=== PATIENT | male | born 1960 | race African-American/Black ===

== ENCOUNTER 2016-04-09 08:31 | Emergency (ER) | payer OTHER ==
[~2016-04-09] VITALS: Ht 185.4 cm; Wt 107.0 kg
[2016-04-09 08:57] LABS: BASO % 1 % (0-3); EOS % 1 % (0-3); HEMATOCRIT 41.4 % (39.0-53.0); HEMOGLOBIN 13.6 g/dL (13.0-17.5); LYMPH # 1.6 x10^3/uL (1.0-4.8); LYMPH % 40 % (24-48); MEAN CORPUSCULAR HEMOGLOBIN 29 pg (25-35); MEAN CORPUSCULAR HGB CONC 33 g/dL (31-37); MEAN CORPUSCULAR VOLUME 89 fL (79-100); MONO % 9 % (0-9); NEUT % 49 % (31-73); PLATELET COUNT 337 x10^3/uL (140-400); RED BLOOD COUNT 4.67 x10^6/uL (4.30-5.70); RED CELL DISTRIBUTION WIDTH 15.9 % (11.5-14.5)
[2016-04-09] MEDS ORDERED: ONDANSETRON PF 4 MG/2 ML VIAL. IV ONE (09:00)
[2016-04-09] MEDS ORDERED: MORPHINE SULFATE 4 MG/ML DISP.SYRIN. IV/SQ PRN (09:00)
[2016-04-09 09:07] LABS: CALCIUM 8.6 mg/dL (8.5-10.1); CREATININE 0.9 mg/dL (0.7-1.3); GFR 105.2; POTASSIUM 3.6 mmol/L (3.5-5.1)
--- NOTE | 2016-04-09 09:07 | PHYS DOC ---
Past Medical History Past Medical History: High Cholesterol, Hypertension Past Surgical History: Knee Replacement, Other Additional Past Surgical Histo: R KNEE REPLACEMENT, HERNIA REPAIR Smoking: Less than 1pk/day Alcohol Use: Heavy Drug Use: Marijuana Adult General Chief Complaint Chief Complaint: LOWER EXTREMITY SWELLING HPI HPI Patient is a 55 year old male who presents with left lower leg swelling that started 2 days ago. He states that he has pain in the leg and it feels warmer than the right leg. He denies fever, chest pain, shortness of breath, weakness, or numbness. He has not had any recent travel, immobilization, surgery, or hormone treatment. He denies personal or family history of blood clots or clotting disorders. He sees a PCP at [facility]. Review of Systems Review of Systems Constitutional: Denies fever or chills. [] Eyes: Denies change in visual acuity, redness, or eye pain. [] HENT: Denies ear pain, nasal congestion or sore throat. [] Respiratory: Denies cough or shortness of breath. [] Cardiovascular: Denies chest pain, palpitations or edema. [] GI: Denies abdominal pain, nausea, vomiting, bloody stools or diarrhea. [] : Denies dysuria, hematuria or urinary frequency. [] Musculoskeletal: Denies back pain or joint pain. Reports left lower leg pain and swelling. Integument: Denies rash or skin lesions. [] Neurologic: Denies headache, focal weakness or sensory changes. [] Endocrine: Denies polyuria or polydipsia. [] Psych: Denies anxiety or depression. [] All systems reviewed and negative unless otherwise stated in the HPI. Current Medications Current Medications Current Medications Medications (Trade) Dose Ordered Sig/Ariel Start Time Stop Time Status Last Admin Dose Admin Morphine Sulfate 4 mg PRN Q15MIN PRN 04/09/16 09:00 04/10/16 08:59 04/09/16 09:04 4 MG Ondansetron HCl (Zofran) 4 mg 1X ONCE 04/09/16 09:00 04/09/16 09:01 DC 04/09/16 09:05 4 MG Allergies Allergies Allergies Coded Allergies Type Severity Reaction Last Updated Verified No Known Drug Allergies 05/24/15 No Physical Exam Physical Exam Constitutional: Well developed, well nourished, no acute distress, non-toxic appearance. [] HENT: Normocephalic, atraumatic, oropharynx moist. [] Eyes: PERRLA, EOMI, conjunctiva normal, no discharge. [] Neck: Normal range of motion, no tenderness, supple, no stridor. [] Cardiovascular: Heart rate regular rhythm, no murmur. [] Lungs & Thorax: Bilateral breath sounds clear to auscultation without wheezes, rales, or rhonchi. [] Skin: Warm, dry, no erythema, no rash. There is no significant difference in warmth between the left and right extremities. Extremities: Left calf tenderness, ROM intact, 2+ pitting edema from the left knee to the foot. Distal pulses equal bilaterally. Less than 2 second capillary refill in the toes. Light touch sensation intact distally. Positive Gurjit's sign. Neurologic: Alert and oriented X 3, normal motor function, normal sensory function, no focal deficits noted. [] Psychologic: Affect normal, judgement normal, mood normal. [] Current Patient Data Vital Signs Vital Signs Date Time Temp Pulse Resp B/P Pulse Ox O2 Delivery O2 Flow Rate FiO2 04/09/16 09:04 22 04/09/16 08:32 99.6 75 166/106 97 Room Air 99.6 Lab Values Laboratory Tests Test 04/09/16 08:50 White Blood Count 4.0x10^3/uL (4.0-11.0) Red Blood Count 4.67x10^6/uL (4.30-5.70) Hemoglobin 13.6g/dL (13.0-17.5) Hematocrit 41.4% (39.0-53.0) Mean Corpuscular Volume 89fL (79-100) Mean Corpuscular Hemoglobin 29pg (25-35) Mean Corpuscular Hemoglobin Concent 33g/dL (31-37) Red Cell Distribution Width 15.9% (11.5-14.5) H Platelet Count 337x10^3/uL (140-400) Neutrophils (%) (Auto) 49% (31-73) Lymphocytes (%) (Auto) 40% (24-48) Monocytes (%) (Auto) 9% (0-9) Eosinophils (%) (Auto) 1% (0-3) Basophils (%) (Auto) 1% (0-3) Neutrophils # (Auto) 2.0x10^3uL (1.8-7.7) Lymphocytes # (Auto) 1.6x10^3/uL (1.0-4.8) Monocytes # (Auto) 0.4x10^3/uL (0.0-1.1) Eosinophils # (Auto) 0.1x10^3/uL (0.0-0.7) Basophils # (Auto) 0.0x10^3/uL (0.0-0.2) Prothrombin Time 12.1SEC (11.7-14.0) Prothrombin Time INR 1.0 (0.8-1.1) Sodium Level 144mmol/L (136-145) Potassium Level 3.6mmol/L (3.5-5.1) Chloride Level 108mmol/L (98-107) H Carbon Dioxide Level 26mmol/L (21-32) Anion Gap 10 (6-14) Blood Urea Nitrogen 12mg/dL (8-26) Creatinine 0.9mg/dL (0.7-1.3) Estimated GFR (Cockcroft-Gault) 105.2 BUN/Creatinine Ratio 13 (6-20) Glucose Level 101mg/dL (70-99) H Calcium Level 8.6mg/dL (8.5-10.1) Total Bilirubin 0.4mg/dL (0.2-1.0) Aspartate Amino Transferase (AST) 20U/L (15-37) Alanine Aminotransferase (ALT) 31U/L (16-63) Alkaline Phosphatase 58U/L (46-116) Total Protein 7.1g/dL (6.4-8.2) Albumin 3.5g/dL (3.4-5.0) Albumin/Globulin Ratio 1.0 (1.0-1.7) Laboratory Tests 04/09/16 08:50 Laboratory Tests 04/09/16 08:50 EKG EKG [] Radiology/Procedures Radiology/Procedures REASON: LLE swelling, pain Pt not available @ [phone] klp PROCEDURE: VENOUS LOWER EXTREMITY LEFT Left lower extremity venous ultrasound, 04/09/2016 : History: Left leg pain and edema Duplex evaluation including grayscale, color flow and spectral Doppler analysis was performed. The femoral and popliteal veins show no filling defects to suggest DVT. The visualized calf veins are unremarkable. There is mild subcutaneous edema in the lower leg. There is an elongated hypoechoic mass in the medial aspect of the popliteal fossa extending inferiorly. It measures approximately 6.0 x 1.6 x 3 cm. No internal color flow is seen. The appearance suggests a complicated fluid collection such as a hematoma or complicated Castro's cyst. IMPRESSION: 1. There is no sonographic evidence of deep vein thrombosis in the left lower extremity. 2. Hypoechoic mass in the left popliteal fossa extending into the upper calf as described above. Course & Med Decision Making Course & Med Decision Making Pertinent Labs and Imaging studies reviewed. (See chart for details) Patient is 55-year-old male who presents with left lower extremity pain and swelling for 2 days. On exam, there is 2+ pitting edema of the left lower extremity. He is neurovascularly intact without compartment syndrome. Ultrasound does not show DVT. There is a complex fluid collection in the popliteal fossa consistent with hematoma or Castro's cyst. There is no history of trauma. There are no significant laboratory antibodies. The patient is discharged with prescription for [place] for pain. He is given contact information for orthopedics for follow-up. Return precautions were discussed. He verbalizes understanding and agrees with plan. Dragon Disclaimer Dragon Disclaimer This electronic medical record was generated, in whole or in part, using a voice recognition dictation system. Departure Departure Impression: Primary Impression: Lower extremity edema Additional Impression: Castro's cyst of knee Disposition: 01 HOME, SELF-CARE Condition: STABLE Referrals: KHOA RABAGO MD Patient Instructions: Castro's Cyst, Edema, [id number] Additional Instructions: Your ultrasound today did not show any blood clots. You likely have a cyst, or fluid-filled sac, behind the left knee. Please take the prescribed pain medication as instructed. Do not drive or operate heavy machinery while taking pain medication. Please follow-up with the orthopedic doctor listed below if you continue to have bothersome symptoms. Return to the emergency department if you have any new or concerning symptoms. Scripts Hydrocodone/Apap 5-325 ([place] 5-325 Tablet)1 Each Tablet1 Tab PO PRN Q6HRS PRN PAIN #20 TAB Prov:JOSY PAINTER 04/09/16 Problem Qualifiers Primary Impression: Lower extremity edema Laterality: left Qualified Code: R60.0 - Localized edema Additional Impression: Castro's cyst of knee Laterality: left Qualified Code: M71.22 - Synovial cyst of popliteal space [ Castro], left knee JOSY PAINTER Apr 09, 2016 09:07
[2016-04-09 09:12] LABS: ALBUMIN 3.5 g/dL (3.4-5.0); TOTAL BILIRUBIN 0.4 mg/dL (0.2-1.0); TOTAL PROTEIN 7.1 g/dL (6.4-8.2)
[2016-04-09 10:02] LABS: PROTHROMBIN TIME PATIENT 12.1 SEC (11.7-14.0)
--- NOTE | 2016-04-09 10:17 | RAD ---
Left lower extremity venous ultrasound, 04/09/2016 : History: Left leg pain and edema Duplex evaluation including grayscale, color flow and spectral Doppler analysis was performed. The femoral and popliteal veins show no filling defects to suggest DVT. The visualized calf veins are unremarkable. There is mild subcutaneous edema in the lower leg. There is an elongated hypoechoic mass in the medial aspect of the popliteal fossa extending inferiorly. It measures approximately 6.0 x 1.6 x 3 cm. No internal color flow is seen. The appearance suggests a complicated fluid collection such as a hematoma or complicated Castro's cyst. IMPRESSION: 1. There is no sonographic evidence of deep vein thrombosis in the left lower extremity. 2. Hypoechoic mass in the left popliteal fossa extending into the upper calf as described above.
[2016-04-09 10:30] VITALS: BP 163/95
[2016-04-09] MEDS ORDERED: HYDR-971 PO (10:31)
== END 2016-04-09 11:03 | disposition home or self-care (01) ==
LOC: ER 08:31
DX: M71.22 Synovial cyst of popliteal space [Baker], left knee (principal); I10 Essential (primary) hypertension; E78.00 Pure hypercholesterolemia, unspecified; Z96.651 Presence of right artificial knee joint; F17.200 Nicotine dependence, unspecified, uncomplicated; F12.10 Cannabis abuse, uncomplicated; F10.10 Alcohol abuse, uncomplicated; Z98.890 Other specified postprocedural states
CPT/HCPCS: 36415; 80053; 85027; 85610; 93971; 96374; 96375; 99285; J2270; J2405

== ENCOUNTER 2016-12-20 13:44 | Emergency (ER) | payer OTHER ==
[~2016-12-20] VITALS: Ht 185.4 cm; Wt 108.9 kg
[2016-12-20 13:44] VITALS: BP 164/107
[~2016-12-20 13:44] MED LIST: HYDR-971 PO
--- NOTE | 2016-12-20 14:27 | PHYS DOC ---
Past Medical History Past Medical History: High Cholesterol, Hypertension Past Surgical History: Knee Replacement, Other Additional Past Surgical Histo: R KNEE REPLACEMENT, HERNIA REPAIR Alcohol Use: Heavy Drug Use: Marijuana Adult General Chief Complaint Chief Complaint: ANKLE PROBLEM HPI HPI Patient is a 56 year old male presents to the emergency department stating that he twisted his left foot as he was trying to avoid stepping on a nail. He also states he twisted the ankle. He denies any knee pain or discomfort. He states last night he noticed that there was swelling in the foot and ankle area. He states he did take Tylenol for the pain and discomfort. Patient denies any numbness or tingling down to the lower extremity. Patient does have a history of high blood pressure his blood pressure is elevated here in the emergency department. He states he has not taken his medication yet. Review of Systems Review of Systems Constitutional: Denies fever or chills [] Eyes: Denies change in visual acuity, redness, or eye pain [] HENT: Denies nasal congestion or sore throat [] Respiratory: Denies cough or shortness of breath [] Cardiovascular: No additional information not addressed in HPI [] GI: Denies abdominal pain, nausea, vomiting, bloody stools or diarrhea [] : Denies dysuria or hematuria [] Musculoskeletal: Denies back pain. Left ankle pain, left foot pain Integument: Denies rash or skin lesions [] Neurologic: Denies headache, focal weakness or sensory changes [] Endocrine: Denies polyuria or polydipsia [] All other systems were reviewed and found to be within normal limits, except as documented in this note. Allergies Allergies Allergies Coded Allergies Type Severity Reaction Last Updated Verified No Known Drug Allergies 05/24/15 No Physical Exam Physical Exam Constitutional: Well developed, well nourished, no acute distress, non-toxic appearance. [] HENT: Normocephalic, atraumatic, bilateral external ears normal, oropharynx moist, no oral exudates, nose normal. [] Eyes: PERRLA, EOMI, conjunctiva normal, no discharge. [] Neck: Normal range of motion, no tenderness, supple, no stridor. [] Cardiovascular:Heart rate regular rhythm, no murmur [] Lungs & Thorax: Bilateral breath sounds clear to auscultation [] Skin: Warm, dry, no erythema, no rash. [] Back: No tenderness, no CVA tenderness. [] Extremities: No left knee tenderness, patient with left ankle and foot tenderness, no bruising or discoloration noted. Patient with swelling noted to the foot and ankle area. No cyanosis, no clubbing, ROM intact, no edema. [] Neurologic: Alert and oriented X 3, normal motor function, normal sensory function, no focal deficits noted. [] Psychologic: Affect normal, judgement normal, mood normal. [] Current Patient Data Vital Signs Vital Signs Date Time Temp Pulse Resp B/P (MAP) Pulse Ox O2 Delivery O2 Flow Rate FiO2 12/20/16 13:44 97.9 86 16 97 Room Air 97.9 EKG EKG [] Radiology/Procedures Radiology/Procedures [][place] [address] IMAGING REPORT Signed PATIENT: ELHAM CATHERINE ACCOUNT: [id number] : 1960 LOCATION: ER AGE: 56 SEX: M EXAM STATUS: REG ER ORD. PHYSICIAN: ZOILA NINA APRN REASON: twisted foot and ankle pain and swelling PROCEDURE: FOOT LEFT 3V 3 view left foot study History: Pain and swelling. Twisting injury yesterday Findings: No acute fracture or dislocation or osteolytic process is seen. Small plantar spur of the calcaneus is seen. IMPRESSION: No acute fracture. DICTATED and SIGNED BY: AMBER CRAWFORD MD DATE: 12/20/16 1435 CC: ZOILA NINA APRN; NO PCP; NON,STAFF ~ [address] [address] IMAGING REPORT Signed PATIENT: ELHAM CATHERINE ACCOUNT: [id number] : 1960 LOCATION: ER AGE: 56 SEX: M EXAM STATUS: REG ER ORD. PHYSICIAN: ZOILA NINA APRN REASON: pain and swelling from twisting ankle yestrerday PROCEDURE: ANKLE LEFT 3V Three-view study of the left ankle History: Pain and swelling. Twisting injury yesterday. Findings: No acute fracture or dislocation or osteolytic process is seen. The mortise ankle joint is intact. A small plantar spur of the calcaneus is seen. IMPRESSION: No acute fracture. DICTATED and SIGNED BY: AMBER CRAWFORD MD DATE: 12/20/16 1434 CC: ZOILA NINA APRN; NO PCP; NON,STAFF ~ Course & Med Decision Making Course & Med Decision Making Pertinent Labs and Imaging studies reviewed. (See chart for details) X-rays were negative for any bony abnormalities per radiology. Patient will be placed in an Raudel wrap will be discharged home with recommendations for Tylenol or ibuprofen for pain and discomfort ice packs on 20 minutes off 20 minutes several times a day elevation as much as possible. Recommendations to followup with orthopedic in 1 week. Signs and symptoms to return to the emergency department as needed for signs and symptoms that become worse. Patient agrees with discharge instructions, treatment regimen and followup recommendations. [] Dragon Disclaimer Dragon Disclaimer This electronic medical record was generated, in whole or in part, using a voice recognition dictation system. Departure Departure Impression: Primary Impression: Left ankle sprain Additional Impression: Sprain of left foot Disposition: HOME, SELF-CARE Condition: STABLE Referrals: NO PCP (PCP) MARY ENCARNACION II, MD Patient Instructions: Ankle Sprain, [id number], Foot Sprain-Brief Additional Instructions: X-rays were negative for bony abnormalities Ice packs on 20 minutes and off 20 minutes several times a day Elevation as much as possible Wear the raudel wrap for the next 5-7 days Tylenol or ibuprofen for pain and discomfort Make sure you take you Blood pressure medications when you get home Followup with orthopedic in 1 week Return to emergency department as needed for signs and symptoms that become worse. Problem Qualifiers Primary Impression: Left ankle sprain Encounter type: initial encounter Involved ligament of ankle: unspecified ligament Qualified Codes: S93.402A - Sprain of unspecified ligament of left ankle, initial encounter Additional Impression: Sprain of left foot Encounter type: initial encounter Qualified Codes: S93.602A - Unspecified sprain of left foot, initial encounter ZOILA NINA APRN Dec 20, 2016 14:27
--- NOTE | 2016-12-20 14:39 | RAD ---
Three-view study of the left ankle History: Pain and swelling. Twisting injury yesterday. Findings: No acute fracture or dislocation or osteolytic process is seen. The mortise ankle joint is intact. A small plantar spur of the calcaneus is seen. IMPRESSION: No acute fracture.
--- NOTE | 2016-12-20 14:40 | RAD ---
3 view left foot study History: Pain and swelling. Twisting injury yesterday Findings: No acute fracture or dislocation or osteolytic process is seen. Small plantar spur of the calcaneus is seen. IMPRESSION: No acute fracture.
[2016-12-20] MEDS ORDERED: IBUPROFEN 600 MG TABLET. PO ONE (15:00)
== END 2016-12-20 15:00 | disposition home or self-care (01) ==
LOC: ER 13:44
DX: S93.602A Unspecified sprain of left foot, initial encounter (principal); S93.402A Sprain of unspecified ligament of left ankle, initial encounter; E78.00 Pure hypercholesterolemia, unspecified; I10 Essential (primary) hypertension; Z96.651 Presence of right artificial knee joint; F10.10 Alcohol abuse, uncomplicated; X50.9XXA Other and unspecified overexertion or strenuous movements or postures, initial encounter; Y93.89 Activity, other specified; Y99.8 Other external cause status; Y92.89 Other specified places as the place of occurrence of the external cause
CPT/HCPCS: 73610; 73630; 99284

== ENCOUNTER 2018-01-28 14:12 | Emergency (ER) | payer OTHER ==
[~2018-01-28] VITALS: Ht 185.4 cm; Wt 105.2 kg
[~2018-01-28 14:12] MED LIST changes: +HYDR-3164 PO; -HYDR-971 PO
--- NOTE | 2018-01-28 15:16 | RAD ---
KNEE BILAT 3V History: PT FELL THIS PM, FELL FORWARD ON KNEES, RT HURTS WORSE, SWELLING. Comparison: None are available 3 views are obtained of each knee. Right knee Medial compartment hemiarthroplasty. There is some irregularity of the right medial tibial plateau articular surface, appears similar to the previous exam from May 24, 2015. No evidence of an acute fracture. No dislocation. No significant soft tissue abnormality. Left knee Degenerative narrowing at the medial compartment. There is mild subchondral flattening and sclerosis. No evidence of an acute fracture. There may be a small left knee joint effusion. Small bone density posterior to the knee may represent a loose body. IMPRESSION: 1. Degenerative changes at the left knee. 2. Postsurgical changes at the right knee. 3. Small left knee joint effusion. 4. Possible posterior loose body of the left knee. Electronically signed by: Po Chaney MD (01/28/2018 3:12 PM) [facility]
--- NOTE | 2018-01-28 15:22 | RAD ---
WRIST 3V RIGHT History: PT STATES FELL THIS PM FALLING FORWARD, NOW HAVING WRIST PAIN. . Comparison: None are available Widening of the scapholunate distance, compatible with dissociation. No evidence of an acute fracture. There is mild soft tissue swelling around the wrist. IMPRESSION: 1. Scapholunate widening, suggesting scapholunate ligament tear. 2. No definite acute fracture. Electronically signed by: Po Chaney MD (01/28/2018 3:18 PM) [facility]
--- NOTE | 2018-01-28 15:45 | PHYS DOC ---
Past Medical History Past Medical History: High Cholesterol, Hypertension Past Surgical History: Knee Replacement, Other Additional Past Surgical Histo: R KNEE REPLACEMENT, HERNIA REPAIR Additional Information: quit smoking 2 years ago Alcohol Use: Occasionally Drug Use: None Social History Narrative: denies Adult General Chief Complaint Chief Complaint: MECHANICAL FALL HPI HPI Patient is a 57 year old male who presents with bilateral knee and wrist pain, worse to the right, after he fell approximately 1:30 this afternoon. The patient presented directly to the emergency department. He is up-to-date on his tetanus booster. He denies any other injury. Review of Systems Review of Systems Constitutional: Denies fever or chills [] Respiratory: Denies cough or shortness of breath [] Cardiovascular: No additional information not addressed in HPI [] GI: Denies abdominal pain, nausea, vomiting, bloody stools or diarrhea [] : Denies dysuria or hematuria [] Musculoskeletal: See history of present illness Integument: Denies rash or skin lesions [] Neurologic: Denies headache, focal weakness or sensory changes [] Endocrine: Denies polyuria or polydipsia [] All other systems were reviewed and found to be within normal limits, except as documented in this note. Current Medications Current Medications Current Medications Medications (Trade) Dose Ordered Sig/Ariel Start Time Stop Time Status Last Admin Dose Admin Ibuprofen (Motrin) 800 mg 1X ONCE 01/28/18 16:00 01/28/18 16:01 DC 01/28/18 16:00 800 MG Allergies Allergies Allergies Coded Allergies Type Severity Reaction Last Updated Verified No Known Drug Allergies 05/24/15 No Physical Exam Physical Exam Constitutional: Well developed, well nourished, no acute distress, non-toxic appearance. [] Cardiovascular:Heart rate regular rhythm, no murmur [] Lungs & Thorax: Bilateral breath sounds clear to auscultation [] Abdomen: Bowel sounds normal, soft, no tenderness, no masses, no pulsatile masses. [] Skin: Warm, dry, no erythema, no rash. [] Back: No tenderness, no CVA tenderness. [] Extremities: right wrist and bilateral knee tenderness, mild swelling to right wrist, no cyanosis, no clubbing, ROM slightly decreased due to pain to bilateral knees, range of motion decreased right wrist, pulses and sensation are intact distal to injuries Neurologic: Alert and oriented X 3, normal motor function, normal sensory function, no focal deficits noted. [] Psychologic: Affect normal, judgement normal, mood normal. [] Current Patient Data Vital Signs Vital Signs Date Time Temp Pulse Resp B/P (MAP) Pulse Ox O2 Delivery O2 Flow Rate FiO2 01/28/18 16:02 72 18 99 01/28/18 14:19 98.5 175/104 (127) Room Air 98.5 EKG EKG [] Radiology/Procedures Radiology/Procedures []PATIENT: ELHAM CATHERINE LACCOUNT: [id number]#: [id number] : 1960 LOCATION: ER AGE: 57 SEX: M EXAM STATUS: REG ER ORD. PHYSICIAN: ACE COTTO APRN REASON: fall today PROCEDURE: WRIST 3V RIGHT WRIST 3V RIGHT History: PT STATES FELL THIS PM FALLING FORWARD, NOW HAVING WRIST PAIN. . Comparison: None are available Widening of the scapholunate distance, compatible with dissociation. No evidence of an acute fracture. There is mild soft tissue swelling around the wrist. IMPRESSION: 1. Scapholunate widening, suggesting scapholunate ligament tear. 2. No definite acute fracture. Electronically signed by: Po Chaney MD (01/28/2018 3:18 PM) [facility] DICTATED and SIGNED BY: PO CHANEY MD DATE: 01/28/18 1516 Signed PATIENT: ELHAM CATHERINE L ACCOUNT: [id number] : 1960 LOCATION: ER AGE: 57 SEX: M EXAM STATUS: REG ER ORD. PHYSICIAN: ACE COTTO APRN REASON: fall today PROCEDURE: KNEE BILAT 3V KNEE BILAT 3V History: PT FELL THIS PM, FELL FORWARD ON KNEES, RT HURTS WORSE, SWELLING. Comparison: None are available 3 views are obtained of each knee. Right knee Medial compartment hemiarthroplasty. There is some irregularity of the right medial tibial plateau articular surface, appears similar to the previous exam from May 24, 2015. No evidence of an acute fracture. No dislocation. No significant soft tissue abnormality. Left knee Degenerative narrowing at the medial compartment. There is mild subchondral flattening and sclerosis. No evidence of an acute fracture. There may be a small left knee joint effusion. Small bone density posterior to the knee may represent a loose body. IMPRESSION: 1. Degenerative changes at the left knee. 2. Postsurgical changes at the right knee. 3. Small left knee joint effusion. 4. Possible posterior loose body of the left knee. Electronically signed by: Po Chaney MD (01/28/2018 3:12 PM) [facility] DICTATED and SIGNED BY: PO CHANEY MD DATE: 01/28/18 4568 Course & Med Decision Making Course & Med Decision Making Pertinent Labs and Imaging studies reviewed. (See chart for details) []He patient has been placed in a Velcro wrist splint. He is to follow-up with orthopedics. He is in agreement with this plan. He was given 800 mg of ibuprofen in the emergency department for pain. Dragon Disclaimer Dragon Disclaimer This electronic medical record was generated, in whole or in part, using a voice recognition dictation system. Departure Departure Impression: Primary Impression: Right scapholunate ligament tear Additional Impression: Bilateral knee pain Disposition: 01 HOME, SELF-CARE Condition: STABLE Referrals: NO PCP (PCP) BEBA VILLA MD Patient Instructions: Wrist Splint Additional Instructions: Follow-up with orthopedics for evaluation of your injuries. You may take ibuprofen or Tylenol for pain. Use the splint for comfort. Return to the emergency department if worsening. Problem Qualifiers ACE COTTO APRN Jan 28, 2018 15:45
[2018-01-28] MEDS ORDERED: IBUPROFEN 400 MG TABLET. PO ONE (16:00)
[2018-01-28 16:02] VITALS: BP 190/106
== END 2018-01-28 16:01 | disposition home or self-care (01) ==
LOC: ER 14:12
DX: S61.511A Laceration without foreign body of right wrist, initial encounter (principal); M25.561 Pain in right knee; M25.562 Pain in left knee; I10 Essential (primary) hypertension; E78.00 Pure hypercholesterolemia, unspecified; Z87.891 Personal history of nicotine dependence; W01.0XXA Fall on same level from slipping, tripping and stumbling without subsequent striking against object, initial encounter; Y93.89 Activity, other specified; Y92.89 Other specified places as the place of occurrence of the external cause; Y99.8 Other external cause status
CPT/HCPCS: 29125; 73110; 73562; 99283

== ENCOUNTER → 2018-02-28 | Outpatient (CLI) | payer MEDICAID, OTHER ==
[~2018-02-28] MED LIST changes: +GADOBUTROL 7.5 MMOL/7.5 ML VIAL INT ART ONE; +IOHEXOL 300 MG/ML 50 ML VIAL. INT ART ONE; +LIDOCAINE 1% Multi-Dose 20 ML VIAL. ID ONE
--- NOTE | 2018-02-28 16:15 | KCIC ---
Examination: MR right wrist arthrogram HISTORY: History of right wrist pain injury COMPARISON: None available TECHNIQUE: Multiplanar, multisequence MR imaging of the right wrist was performed after arthrogram injection FINDINGS: Contrast was injected into the radioscaphoid joint. There is complete tear of the scapholunate ligament involving the mid and dorsal aspect of the scapholunate ligament with extension of contrast into the midcarpal joint from the radioscaphoid joint. There is extension of contrast into the distal radioulnar joint with a tear of the central portion of the triangular fibrocartilage, best visualized on series 7 image #10. Moderate size subchondral cystic changes identified in the distal radius at the distal radial and joint with small subchondral cystic changes identified in the distal ulna. Small degenerative cysts identified in the carpal bones. There is a dorsal tilting of the lunate likely dorsal intercalated segmental instability. There is mild increased T2 signal identified in the soft tissue volar and dorsal to the wrist probably secondary to soft tissue injury. Small amount of fluid identified in the second extensor compartment tendon sheath. Mild degenerative changes identified at the base of the second metacarpal and the first carpal metacarpal joint. There is chondral effacement of the radial scaphoid joint with edema. There is fluid identified in the flexor carpi radialis tendon sheath. Mild tendinosis of the extensor carpi ulnaris. There is mild amount of contrast identified about the flexor tendons within the carpal tunnel. Evaluation is limited due to motion identified. Small amount of fluid identified in the flexor carpi radialis tendon sheath. IMPRESSION: 1. Complete tear of the Scapholunate ligament. 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 (DISI). 2. Tear of the triangular fibrocartilage at its radial attachment. . 3. Degenerative changes identified in the distal radioulnar joint and the carpal joints and the base of the second metacarpal and at the first carpal metacarpal joint. 4. There is mild amount of contrast about the flexor tendons within the carpal tunnel. Uncertain how the contrast got to the carpal tunnel , possibly from injury to the triangular fibrocartilage or extrinsic ligament injury. Evaluation limited due to motion. 5. Chondral effacement of the the radioscaphoid joint. 6. Small amount of fluid identified in the flexor carpi radialis tendon sheath likely tenosynovitis. Small amount of fluid identified in the second extensor compartment tendon sheath could be tenosynovitis or secondary to anesthetic injection. Electronically signed by: Cosmo Russell MD (02/28/2018 4:10 PM) [email or web address]
--- NOTE | 2018-02-28 17:28 | KCIC ---
Examination: Right Wrist arthrogram HISTORY: History of right wrist pain status post fall COMPARISON: 01/28/2018 FINDINGS: Informed consent was obtained after explaining the risks and benefits to the patient. Patient was brought to fluoroscopic suite. The region was marked. A timeout was performed. The region was prepped and draped in sterile fashion. Local anesthesia vasculature 1% lidocaine. A 25-gauge needle was advanced into the radioscaphoid joint under ultrasound guidance and 5 cc of mixture 5 cc of sterile normal saline, 4 cc of lidocaine, 4 cc of bupivacaine, 4 cc of iodinated contrast with 0.1 cc of gadolinium contrast was injected. The needle was removed. No immediate obligations. Patient was sent to MRI IMPRESSION: Successful right wrist joint (radioscaphoid) injection for MRI arthrogram. Total fluoroscopic time 1.5 minutes. Total fluoroscopic images 2. Electronically signed by: Cosmo Russell MD (02/28/2018 5:24 PM) [id number]
== END | disposition home or self-care (01) ==
LOC: KCIC 12:11
PROVIDERS: ATTEND Orthopaedic Surgery Sports Medicine
DX: S63.591A Other specified sprain of right wrist, initial encounter (principal); M18.31 Unilateral post-traumatic osteoarthritis of first carpometacarpal joint, right hand; M19.031 Primary osteoarthritis, right wrist; I10 Essential (primary) hypertension; Z79.01 Long term (current) use of anticoagulants; X58.XXXA Exposure to other specified factors, initial encounter; Y93.89 Activity, other specified; Y92.89 Other specified places as the place of occurrence of the external cause; Y99.8 Other external cause status
CPT/HCPCS: 73115; 73222; A9585; Q9967